=== PATIENT | male | born 1940 | race Caucasian/White ===

== ENCOUNTER → 2020-04-30 09:58 | Outpatient (CLI) | payer MEDICARE, OTHER, SELFPAY ==
[2020-04-30 10:34] LABS: Add Manual Diff / Slide Review NO; Basophils Absolute Auto 0 /uL (0-100); Basophils Percent Auto 1.1 % (0-2); Eosinophils Absolute Auto 100 /uL (0-450); Eosinophils Percent Auto 1.5 % (2-4); Hemoglobin 13.6 g/dL (13.5-17.5); Lymphocytes Absolute Auto 1200 /uL (1100-4500); Lymphocytes Percent Auto 27.4 % (25-40); Mean Corpuscular HGB Conc 33.1 % (30-36); Mean Corpuscular Hemoglobin 32.9 PG (26-34); Mean Corpuscular Volume 99.3 fL (80-100); Monocytes Absolute Auto 600 /uL (0-900); Neutrophils Absolute Auto 2400 /uL (1500-7000); Platelet Count 120 X10^3/uL (150-400); Red Blood Cell Count 4.13 X10^6/uL (4.5-5.9); Red Cell Distribution Width 13.9 % (11.6-14.8); White Blood Cell Count 4.3 X10^3/uL (4.5-11.0)
[2020-04-30 10:48] LABS: BUN Creatinine Ratio 18.1 (6-22); Blood Urea Nitrogen 21 mg/dL (9-20); Calcium 9.7 mg/dL (8.4-10.2); Carbon Dioxide 31 mmol/L (22-32); Chloride 107 mmol/L (98-107); Estimated Glomerular Filt Rate > 60.0 mL/min (>60); Glucose 96 mg/dL (80-110); HEMOLYSIS < 15 (0-50); Potassium 4.9 mmol/L (3.4-5.1); Sodium 140 mmol/L (137-145)
[2020-04-30 11:22] LABS: Ferritin 418 ng/mL (18-464)
[2020-04-30 11:42] LABS: HEMOLYSIS < 15 (0-50); Iron 117 ug/dL (49-181)
[2020-04-30 11:52] LABS: Folate 11.4 ng/mL (2.76-20.0); Percent Iron Saturation 44 % (20-50); Total Iron Binding Capacity 265 ug/dL (261-462); Transferrin 213 mg/dL (206-381)
[2020-04-30 15:31] LABS: Vitamin B12 234 pg/mL (239-931)
== END ==
PROVIDERS: Family Provider Nurse Practitioner Family; PCP Internal Medicine; Referring Provider Internal Medicine; Visit Provider Internal Medicine
DX: D50.9 Iron deficiency anemia, unspecified (principal); N18.2 Chronic kidney disease, stage 2 (mild); E53.8 Deficiency of other specified B group vitamins
CPT/HCPCS: 36415; 80048; 82607; 82728; 82746; 83540; 83550; 85025

== ENCOUNTER → 2023-01-07 10:21 | Outpatient (CLI) | payer MEDICARE, OTHER, SELFPAY ==
--- NOTE | 2023-01-07 | DI.CT.S_ITS ---
PROCEDURE: CT CHEST ABD PEL W CON INDICATIONS: Anemia, unspecified. Weight loss. TECHNIQUE: After the administration of oral and intravenous contrast, axial sections acquired from the supraclavicular neck to the pubic symphysis. Coronal and sagittal reformats were performed. For radiation dose reduction, the following was used: automated exposure control, adjustment of mA and/or kV according to patient size. COMPARISON: [facility], CT, THORAX WITHOUT CONTRAST, 03/07/2015, 11:13. FINDINGS: CHEST: Lower Neck: No enlarged lymph nodes. Axillae: No enlarged lymph nodes. Lungs: No consolidation or pleural effusion. Nonspecific peripheral predominant reticular opacities. Heart: No pericardial effusion. Thoracic Vessels: The aorta and pulmonary arteries demonstrate normal size. Mediastinum and Beth: No enlarged lymph nodes. Esophagus: No wall thickening. ABDOMEN: Liver: Unremarkable. Gallbladder: Heterogeneous material present dependently within the gallbladder. Biliary ducts: Unremarkable. Pancreas: No main ductal dilation. A 1.7 cm cystic lesion is present within the pancreatic head/uncinate process (71). Spleen: Unremarkable. Adrenal Glands: Unremarkable. Kidneys and Ureters: No hydronephrosis. 1.5 cm structure exophytic from the left upper kidney (/66), internal density of 65 Hounsfield units, indeterminate. Similar to minimally increased in size since the 2015 exam. Stomach and Bowel: No bowel obstruction Peritoneum: No free air. Trace nonspecific pelvic free fluid present Abdominal Nodes: No retroperitoneal or mesenteric adenopathy by size criteria. Vessels: Aorta and inferior vena cava are normal in size. PELVIS: Pelvic Organs: Unremarkable. Bladder: Unremarkable. Pelvic Nodes: No enlarged lymph nodes. Bones: Multilevel degenerative change of the visualized spine. IMPRESSION: 1. A 1.7 cm cyst is present at the pancreatic head/uncinate process. Per ACR incidental findings guidelines, imaging follow-up is recommended in 2 years. 2. Heterogeneous material is present within the gallbladder. At least a component of this probably represents cholelithiasis given presence of cholelithiasis on prior imaging however some of the material appears similar in attenuation to soft tissue and a gallbladder mass cannot be excluded. Could consider initial evaluation with ultrasound. 3. A 1.5 cm structure exophytic from the left upper kidney probably represents a hemorrhagic/proteinaceous cyst given presence of this finding dating back to at least 2014, however it is technically indeterminate by internal density. Could consider initial evaluation with ultrasound to determine if this finding is cystic versus solid. 4. Alternatively, could consider MRI of the abdomen, pancreas/MRCP protocol with and without contrast, for evaluation of above findings. Dictated by: Dk Uribe M.D. on 01/07/2023 at 13:09 Approved by: Dk Uribe M.D. on 01/07/2023 at 13:37
[2023-01-07 11:10] LABS: Estimated Glomerular Filt Rate 52 mL/min (>60)
== END ==
PROVIDERS: Family Provider Nurse Practitioner Family; PCP Internal Medicine; Referring Provider Internal Medicine; Visit Provider Internal Medicine
DX: K86.2 Cyst of pancreas (principal); D64.9 Anemia, unspecified; R63.4 Abnormal weight loss; K82.9 Disease of gallbladder, unspecified; N28.9 Disorder of kidney and ureter, unspecified; D12.6 Benign neoplasm of colon, unspecified; R74.8 Abnormal levels of other serum enzymes; R73.09 Other abnormal glucose
CPT/HCPCS: 36415; 71260; 74177; 82565; Q9967

== ENCOUNTER → 2023-01-20 10:06 | Outpatient (CLI) | payer MEDICARE, OTHER, SELFPAY ==
--- NOTE | 2023-01-20 | DI.US.S_ITS ---
PROCEDURE: US ABDOMEN COMPLETE INDICATIONS: GALLBLADDER AND RENAL MASS SEEN ON CT TECHNIQUE: Real-time scanning was performed of the abdominal and retroperitoneal organs, with image documentation. COMPARISON: [facility], CT, PE STUDY (CTA CHEST), 09/25/2014, 13:09. [facility], CT, CT CHEST ABD PEL W CON, 01/07/2023, 11:56. FINDINGS: Overall scan quality is limited by overlying bowel gas. Liver: Liver is normal in size and homogeneous in echotexture. The main portal vein demonstrates normal size and demonstrates normal appearing, hepatopetal flow. Gallbladder: Multiple mobile gallstones are seen. The gallbladder wall is not thickened, measuring 3 mm or less. No specific pericholecystic fluid is seen. The sonographic [place] sign is negative. Biliary ducts: Intrahepatic bile ducts are non-dilated. Extrahepatic bile duct caliber measures 5 mm. Normal is 6-7 mm or less in diameter, or 10 mm or less post-cholecystectomy. Pancreas: An anechoic pancreatic head cyst is seen that measures 1.5 x 1.4 x 1.4 cm. The pancreatic duct is within normal limits at 2.5 mm. Spleen: Spleen is normal in size and homogeneous in echotexture. Kidneys: Kidneys are normal in size and echotexture. Right kidney measures 9.6 cm long; left kidney measures 10.6 cm long. No hydronephrosis or nephrolithiasis. No solid masses. The right kidney demonstrates [id number] pelviectasis. On the left, cysts are seen, including an exophytic nonvascular cyst superiorly measuring 12 x 12 x 12 mm. An additional likely complex cysts can be seen posteriorly and superiorly measuring 1.8 x 2.3 x 1.6 cm. 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 Iliacs: Proximal common iliac arteries are normal in caliber at less than 2.5 cm. IVC: Intrahepatic inferior vena cava is patent. Miscellaneous: No free abdominal fluid. The prevoid bladder volume is 238 cc. The postvoid bladder volume is 12 cc. Bilateral ureteral jets are seen into the bladder. IMPRESSION: Numerous layering mobile are seen, yet without additional sonographic signs of cholecystitis. Negative for biliary dilatation. Please correlate with physical examination findings, patient presentation, and laboratory values. There is a 1.5 cm anechoic cyst within the head of the pancreas. The left kidney demonstrates cysts, including a likely complex cyst measuring up to 2.3 cm. Attention should be paid to this focus on any future follow-up studies. 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 However, on the recent prior CT, the maximum AP measurement at this site is 2.1 cm. The ultrasound measurement on the current study regarded to be artifactual. Anechoic cyst seen involving the pancreatic head. Small postvoid residual, 12 cc. Dictated by: Khurram Kumari M.D. on 01/20/2023 at 17:14 Approved by: Khurram Kumari M.D. on 01/20/2023 at 17:23
== END ==
PROVIDERS: Family Provider Nurse Practitioner Family; PCP Internal Medicine; Referring Provider Internal Medicine; Visit Provider Internal Medicine
DX: N28.1 Cyst of kidney, acquired (principal); K82.9 Disease of gallbladder, unspecified; K80.20 Calculus of gallbladder without cholecystitis without obstruction; N28.89 Other specified disorders of kidney and ureter; K86.2 Cyst of pancreas
CPT/HCPCS: 76700

== ENCOUNTER → 2025-08-16 07:58 | Outpatient (CLI) | payer MEDICARE, OTHER, SELFPAY ==
--- NOTE | 2025-08-16 08:01 | DI.CT.S_ITS ---
PROCEDURE: CT ABDOMEN WWO PELVIS W INDICATIONS: abdominal mass TECHNIQUE: After the administration of oral contrast, 5 mm thick sections acquired from the diaphragms to the iliac crests. After the administration of intravenous contrast, 5 mm thick sections acquired from the diaphragms to the symphysis. 5 mm thick coronal and sagittal reformats were acquired. For radiation dose reduction, the following was used: automated exposure control, adjustment of mA and/or kV according to patient size. COMPARISON: [facility], US, US ABDOMEN COMPLETE, 01/20/2023, 10:38. FINDINGS: Image quality: Diagnostic. Lower Chest: No significant findings. ABDOMEN: Liver: No solid mass. Gallbladder: Dependent layering gallstones are seen within the gallbladder lumen clustered near the gallbladder neck. No definite inflammation is associated nor is biliary distension found. These were seen by prior abdominal ultrasound in December of 2022. Biliary ducts: No biliary dilation. Pancreas: No ductal dilation. The pancreatic cyst identified by the prior ultrasound in 2022 has mildly enlarged, now measuring up to 1.4 x 1.9 cm versus is 1.5 x 1.4 cm. No solid component is identified, the cystic structure measures water in density and is sharply demarcated. Spleen: Size is within normal limits. Adrenal Glands: No adrenal nodules. Kidneys and Ureters: No hydronephrosis. No solid mass. No complex renal cystic lesion which requires follow up. Stomach and Bowel: Normal colonic caliber, without significant wall thickening. Peritoneum: No abnormal intraperitoneal fluid. No free air. Ventral Wall: No significant ventral hernia. Abdominal Nodes: No retroperitoneal or mesenteric adenopathy by size criteria. Vessels: Aorta and inferior vena cava are normal in size. PELVIS: Pelvic Organs: Unremarkable. Bladder: No bladder wall thickening, accounting for underdistention. Pelvic Nodes: No enlarged lymph nodes. Miscellaneous: No inguinal hernias are seen. Bones: No aggressive osseous abnormality. IMPRESSION: Gallstones again noted clustered within the posterior dependent margin of the gallbladder lumen near the gallbladder neck. No sign of acute cholecystitis or biliary distension. Mild interval enlargement of a previously identified cyst at the pancreatic head area, seen by ultrasound in December of 2022. As noted, this measures water in density and has no associated solid component. It likely is benign. Follow-up in [address] scanning could be obtained, versus by ultrasound. Dictated by: Michele Josue M.D. on 08/16/2025 at 11:50 Approved by: Michele Josue M.D. on 08/16/2025 at 12:11
== END ==
LOC: CT 08:00
PROVIDERS: Family Provider Nurse Practitioner Family; PCP Family Medicine; Referring Provider Family Medicine; Visit Provider Family Medicine
DX: K86.2 Cyst of pancreas (principal); K80.20 Calculus of gallbladder without cholecystitis without obstruction; R19.00 Intra-abdominal and pelvic swelling, mass and lump, unspecified site
CPT/HCPCS: 74178; Q9967